=== PATIENT | female | born 1985 | race American Indian/Alaskan Native ===

== ENCOUNTER 2018-04-10 20:13 | Emergency (ER) | payer OTHER ==
[2018-04-10 20:44] VITALS: BP 130/69
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
== END 2018-04-11 04:01 | disposition home or self-care (01) ==
LOC: ED 20:13
DX: S39.012A Strain of muscle, fascia and tendon of lower back, initial encounter (principal); M54.2 Cervicalgia; Z88.1 Allergy status to other antibiotic agents; Z91.013 Allergy to seafood; V87.7XXA Person injured in collision between other specified motor vehicles (traffic), initial encounter; Y93.89 Activity, other specified; Y99.8 Other external cause status; Y92.410 Unspecified street and highway as the place of occurrence of the external cause
CPT/HCPCS: 99282